=== PATIENT | female | born 1960 | race Caucasian/White ===

== ENCOUNTER 2016-11-07 05:39 | Day surgery (SDC) | payer BC ==
[2016-11-03 15:10] VITALS: BMI 25.0
[~2016-11-07] VITALS: Ht 162.6 cm; Wt 67.7 kg
[~2016-11-07 05:39] MED LIST: BUDE180I INH; LEVO75TA5 PO; VNTHFA/IN INH
[2016-11-07 06:01] VITALS: BP 125/78; PULSE 67; TEMP 36.5; O2SAT 96; Ht 162.6 cm; Wt 67.7 kg
[2016-11-07] MEDS ORDERED: SUCCINYLCHOLINE CHLORIDE 20 MG/ML 10 ML VIAL IV ONE (06:54)
[2016-11-07] MEDS ORDERED: ONDANSETRON INJ 2 MG/ML 2 ML VIAL ONE (06:54)
[2016-11-07] MEDS ORDERED: LIDOCAINE HCL 2% 2 ML VIAL (20MG/ML) ONE (06:54)
[2016-11-07] MEDS ORDERED: PROPOFOL IV EMULSION 10 MG/ML 20 ML VIAL IV ONE ×4 (06:54→08:05)
[2016-11-07] MEDS ORDERED: DEXAMETHASONE SOD INJ 4 MG/ML VIAL ONE (06:54)
[2016-11-07] MEDS ORDERED: MIDAZOLAM HCL 1 MG/ML 2ML VIAL ONE (06:55)
[2016-11-07] MEDS ORDERED: FENTANYL CITRATE INJ 50 MCG/1 ML 2 ML VIAL ONE (06:55)
[2016-11-07] MEDS ORDERED: LACTATED RINGER'S 1000ML 1,000 ML IV SCH (07:00)
--- NOTE | 2016-11-07 07:12 | History and Physical ---
History & Physical Date Nov 07, 2016. History of Present Illness The patient is a 56 year old female with complaints of hoarseness. She was noted to have a true vocal cord lesion on laryngoscopy. with her smoking history, I recommended DL and biopsy. Additional History Hepatic Disease: No Endocrine Disorder: No Kidney Disease: No Hypertension: No Heart Disease: No Bleeding Tendencies: No Infectious Diseases: No Allergies Coded Allergies: No Known Allergies (Unverified , 11/07/16) Home Medications Scheduled Budesonide (Inhalation) (Pulmicort Flexhaler), 2 PUFFS INH QAM Levothyroxine Sodium (Levothyroxine Sodium), 1 TAB PO QAM Scheduled PRN Albuterol Hfa (Ventolin Hfa), 2-4 PUFFS INH Q6H PRN for Shortness of Breath Physical Examination Skin: warm/dry, no rash Eyes: normal inspection, EOMI, sclerae normal ENT: + pertinent finding (hoarseness) Head: normocephalic, atraumatic Neck: supple, no adenopathy, trachea midline Respiratory/Chest: lungs clear, normal breath sounds, no respiratory distress Cardiovascular: regular rate, rhythm, no edema, no murmur Diagnosis Right true cord lesion Plan of Treatment proceed with DL and biopsy - ancef - scds
[2016-11-07] MEDS ORDERED: CEFAZOLIN SOD 1000MG/55 ML D5W IV SCH (07:15)
[2016-11-07] MEDS ORDERED: SODIUM CHLORIDE 0.9% 1000ML 1,000 ML IV SCH (07:22)
[2016-11-07] MEDS ORDERED: OXYC-57 PO (07:25)
[2016-11-07] MEDS ORDERED: CEPH500C2 PO (07:25)
--- NOTE | 2016-11-07 07:27 | Discharge Instructions ---
Discharge Instructions Admission Reason for Admission: Vocal Cord Mass Discharge Discharge Diagnosis / Problem: vocal cord lesion Discharge Goals Goal(s): Diagnostic testing Activity Recommendations Activity Limitations: as noted below (Limited voice use for 48 hrs. ) Lifting Limitations: no more than 5 pounds Exercise/Sports Limitations: until after follow-up appointment May Resume Sexual Activity: after follow-up appointment Shower/Bathe: no limitations . Instructions / Follow-Up Instructions / Follow-Up Limited voice use for 48 hrs. Ok to return to work Current Hospital Diet Patient's current hospital diet: Discharge Diet Recommended Diet: Regular Diet Pending Studies Studies pending at discharge: no Medical Emergencies . Who to Call and When: Medical Emergencies: If at any time you feel your situation is an emergency, please call 911 immediately. . Non-Emergent Contact Non-Emergency issues call your: Specialist Contact Number: [phone] . . "Provider Documentation" section prepared by Pasquale Dowell. VTE Core Measure Inpt VTE Proph given/why not?: Treatment not indicated [place] Drug Monitoring Program Search Results: patient reviewed within database, no issues identified
[2016-11-07] MEDS ORDERED: OXYCODONE/ACETAMINOPHEN 5-325 TAB PO PRN ×2 (07:30)
[2016-11-07] MEDS ORDERED: MoRPHine SULFATE 2 MG/ML CARP IV PRN (07:30)
[2016-11-07] MEDS ORDERED: ONDANSETRON INJ 2 MG/ML 2 ML VIAL IV PRN ×2 (07:30→08:00)
[2016-11-07] MEDS ORDERED: CEFAZOLIN SOD 1 GM VIAL ONE (07:47)
[2016-11-07] MEDS ORDERED: ROCURONIUM BROMIDE 10 MG/ML 5 ML VIAL ONE (07:47)
[2016-11-07] MEDS ORDERED: LABETALOL HCL IV 5 MG/ML 20ML ONE (07:52)
[2016-11-07] MEDS ORDERED: ATROPINE SULFATE 0.1 MG/ML 5ML SYR IV PRN (08:00)
[2016-11-07] MEDS ORDERED: HYDROmorphone INJ 1 MG/ML SYR IV PRN (08:00)
[2016-11-07] MEDS ORDERED: EpHEDrine SULFATE INJ 50 MG/ML AMP IV PRN (08:00)
[2016-11-07] MEDS ORDERED: FENTANYL CITRATE INJ 50 MCG/1 ML 2 ML VIAL IV PRN (08:00)
--- NOTE | 2016-11-07 08:18 | [facility] Post Operative Brief Note ---
Immediate Operative Summary Operative Date Nov 07, 2016. 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
--- NOTE | 2016-11-07 08:25 | OPERATIVE REPORT ---
DATE OF OPERATION: 11/07/2016 PREOPERATIVE DIAGNOSIS: Right true vocal cord mass. POSTOPERATIVE DIAGNOSIS: Same. Frozen section suspicious for invasive squamous cell carcinoma. PROCEDURE: Direct laryngoscopy with biopsy. SURGEON: Pasquale Dowell DO ASSISTANTS: None. ANESTHESIA: General endotracheal anesthesia. ESTIMATED BLOOD LOSS: 5 mL. INTRAVENOUS FLUIDS: 800 mL. URINE OUTPUT: 0 mL. SPECIMENS: Right vocal cord lesions suspected squamous cell carcinoma. This was sent for frozen section analysis. 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 COMPLICATIONS: None. DRAINS: None. INDICATIONS AND HISTORY: This is a 56-year-old female who presented to my office with a several-month history of hoarseness and change in voice. She is a heavy smoker and has been for many years. 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 The cord was mobile. Both cords were mobile on laryngoscopy. With her smoking history, I did recommend proceeding with direct laryngoscopy with biopsy. She expressed her understanding. I discussed the risks including bleeding, infection, oral cavity injury, worsening of voice. She expressed understanding and signed informed consent. DESCRIPTION OF THE OPERATION: The patient brought to the operating room, identified, and procedure verified. She underwent general endotracheal anesthesia and she was prepped and draped in the usual fashion for direct laryngoscopy. At this point, a mouth guard was placed to protect her upper teeth. Once this was done, the anterior commissure scope was used to evaluate the pharynx and larynx. Evaluation of the pharynx revealed posterior and lateral pharyngeal block are normal appearing. Vallecula was normal appearing. The epiglottis was crisp. The false cords were normal appearing. The arytenoid was normal appearing. Post-cricoid space was normal appearing. At this point, the glottis was evaluated. The left true vocal cord was healthy appearing without evidence of mass or lesion. The right true cord with a mass that was at the mid portion of the cord and extended posteriorly towards the arytenoid. Palpation revealed that it was firm and friable. Biopsy of this was performed and several biopsies were obtained. After this was done, hemostasis was assured with epinephrine soaked pledgets. 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 Once hemostasis was assured, both pharynx and larynx were suctioned with a velvet tip suction and the patient was turned to anesthesia. She was awakened, extubated and taken to PACU in stable condition. I attest to the content of the Intraoperative Record and any orders documented therein. Any exceptions are noted below. RHONDA
--- NOTE | 2016-11-07 09:01 | Anesthesiology Progress Note ---
Anesthesia Post Op Note Date & Time Nov 07, 2016 at 09:01 Vital Signs Pain Intensity: 1 Vital Signs Past 12 Hours Date Time Temp Pulse Resp B/P Pulse Ox O2 Delivery O2 Flow Rate FiO2 11/07/16 08:55 70 19 123/77 94 Room Air 11/07/16 08:45 75 19 110/78 93 Room Air 11/07/16 08:35 77 20 101/75 98 Mask 10 11/07/16 08:27 36.0 87 16 104/70 99 Mask 10 11/07/16 06:01 36.5 67 20 125/78 96 Room Air Notes Mental Status: alert / awake / arousable, participated in evaluation Pt Amnestic to Procedure: Yes Nausea / Vomiting: adequately controlled Pain: adequately controlled Airway Patency, RR, SpO2: stable & adequate BP & HR: stable & adequate Hydration State: stable & adequate Anesthetic Complications: no major complications apparent
[2016-11-07 09:10] VITALS: BP 123/72; PULSE 63; TEMP 36.2; O2SAT 92
[2016-11-07 09:40] VITALS: BP 119/70; PULSE 60; TEMP 36.2; O2SAT 94
[2016-11-07 10:07] VITALS: BP 119/79; PULSE 61; TEMP 36.4; O2SAT 94
[2016-11-24] MEDS ORDERED: VNTHFA/IN INH (09:32)
[2016-11-24] MEDS ORDERED: BUDE180I INH (09:32)
[2016-11-24] MEDS ORDERED: LEVO75TA5 PO (09:32)
[2016-11-24] MEDS ORDERED: CLR10 PO (09:32)
[2016-11-24] MEDS ORDERED: FLUT0.15 NAE (09:32)
== END 2016-11-07 10:15 | disposition home or self-care (01) ==
LOC: C.ACU 05:39
PROVIDERS: ATTEND Otolaryngology
DX: J38.3 Other diseases of vocal cords (principal); J44.9 Chronic obstructive pulmonary disease, unspecified; F17.200 Nicotine dependence, unspecified, uncomplicated; Z68.25 Body mass index [BMI] 25.0-25.9, adult

== ENCOUNTER 2025-04-25 11:52 | Inpatient (IN) ==
--- NOTE | 2025-04-25 12:33 | Emergency Department Note ---
Impression & Plan Urinary tract infection, Elevated LFTs, Acute hypotension, Generalized weakness ED Provider Note NAME: CRUZ LEES AGE: 65 SEX: F : 1960 ARRIVES VIA: Walk-In INFORMANT: Patient, ED PROVIDER(S): Clayton Baptiste DO CHIEF COMPLAINT: Not feeling well HPI: The patient is a 65-year-old female who has a history of lung cancer who presented to the emergency department for not feeling well. The patient has noticed when she stands up she is becoming lightheaded and dizzy. She also notices she has cramping through her legs that go into her back. She denies having any chest pain or abdominal pain. She said no dysuria or frequency. The patient presented to the emergency department for further evaluation. The patient did see her family doctor earlier this week. No testing was obtained. The patient came the emergency department today because of ongoing symptoms. ROS: See above HPI for pertinent positives & negatives. A total of 10 systems reviewed and were otherwise negative. PAST MEDICAL HISTORY: See Below PAST SURGICAL HISTORY: See Below FAMILY HISTORY: See Below SOCIAL HISTORY: See Below HOME MEDICATIONS: See Below ALLERGIES: See Below VITALS: See Below PHYSICAL EXAMINATION: GENERAL: Patient is awake alert in no acute distress patient is resting comfortably and showing no signs of anxiety EYES: The conjunctivae are clear. The pupils are round and reactive. EARS, NOSE, MOUTH AND THROAT: The nose is without any evidence of any deformity. NECK: The neck is nontender and supple. RESPIRATORY: Scattered rhonchi were noted throughout. There was no tachypnea or conversational dyspnea. CARDIOVASCULAR: Regular rate and rhythm noted there no murmurs rubs or gallops normal S1 normal S2. GASTROINTESTINAL: The abdomen is soft. Abdomen is nontender. BACK: No midline tenderness or or step-off noted range of motion in flexion extension as well as rotation no signs of muscle spasm noted MUSCULOSKELETAL/EXTREMITIES: There is no evidence of gross deformity full range of motion is noted in the hips and shoulders. SKIN: There is no obvious evidence of any rash. There are no petechiae, pallor or cyanosis noted. NEUROLOGIC: Patient is awake alert and oriented x3 strength is symmetric patellar reflexes are 2+ bilaterally MEDICAL DECISION MAKING: The patient is a 65-year-old female who presented to the emergency department because of generalized illness. The patient has not been feeling well over the last couple days. She is normally managed at [place]. She has a history of cancer. She is receiving chemotherapy. The patient was having some back pain as well as muscle aches in her legs. The patient was treated with IV fluids in the emergency department. She was found to be hypotensive. She was reevaluated multiple times. On reevaluation her blood pressure did not significantly improved. The patient did not have a fever. Laboratory studies did not reflect a definite infectious source. Given the patient's findings of elevated LFTs I did order an ultrasound of her gallbladder which did not show any acute process that would explain this. She did have normal liver studies at the beginning of the month according to her labs from her portal. Given her findings I [facility] I do feel the patient would not be a good candidate for outpatient management at this time. Triage Nursing notes reviewed. Prior medical records reviewed Vital Signs: reviewed and remarkable for hypotension. Differential diagnosis: Infection, dehydration, metabolic abnormality, hypo/hyperglycemia, electrolyte disturbance, anemia, hypoxia, cardiac sources, intracerebral event, toxicologic, neurologic, as well as other pathologies. ER treatment provided: See below Diagnostics interpreted by me: ECG: EKG was obtained in the emergency department. My interpretation is normal sinus rhythm at 94 bpm. There is no ectopy. Low voltage was noted throughout. QTc was 422 ms. Cardiac Monitoring: An order was placed for continuous cardiac monitoring. The monitor shows a rate of 100 bpm with sinus tachycardia. Laboratory studies: As stated above and show below. Imaging studies: See below. Radiographic imaging was reviewed by myself Consultation(s): I discussed this case with Emilia [facility]. Past Med/Surg History Problem List (Updated 04/25/25 @ 15:01 by Clayton Baptiste DO) Urinary tract infection (Acute) Generalized weakness (Acute) Acute hypotension (Acute) Elevated LFTs (Acute) Medical History Hypothyroid Lung cancer COPD (chronic obstructive pulmonary disease) Social History Smoking Status: Never smoker Preferred Language: Frisian Feels Safe at Home: Yes Allergies Allergies Allergy/AdvReac Type Severity Reaction Status Date / Time No Known Allergies Allergy Unverified 11/07/16 05:50 Home Meds Home Medications Medication Instructions Recorded Confirmed ALBUTEROL HFA (VENTOLIN HFA) 2 puff inhalation Q4 #1 inhaler 11/24/16 BUDESONIDE (INHALATION) (PULMICORT 4 puff inhalation BID 30 days #1 11/24/16 FLEXHALER) inhaler Fluticasone Propionate (Nasal) 2 spray RIOS DAILY ##0 11/24/16 (Flonase Allergy Relief) LEVOTHYROXINE SODIUM 1 tab PO DAILY 30 days #30 tabs 11/24/16 Loratadine (Claritin) 10 mg PO DAILY #0 tabs 11/24/16 Results & Data (ED) Vital Signs Vital Signs - 24 hr 04/25/25 11:55 04/25/25 12:19 04/25/25 12:45 Temperature 36.6 C Temperature Source Temporal Artery Scan Pulse Rate 112 H 100 H Respiratory Rate 20 Respiratory Effort / Characteristics Non-Labored Spontaneous Respiratory Depth Normal Respiratory Pattern Regular Blood Pressure 90/63 L Blood Pressure Mean 72 Blood Pressure Position Sitting Pulse Oximetry 96 96 Oxygen Delivery Method Room Air Room Air Sepsis Recent Fever Within 48 Hours No Sepsis New/Unexplained Change in Mental Status N/A Sepsis Action Taken by Nursing No Action Required Home Medications Current Medication List: was personally reviewed by me Laboratory Data Attestation: I reviewed the patient's lab results. 04/25/25 12:14 04/25/25 12:14 Lab Results 04/25/25 04/25/25 04/25/25 Range/Units 12:14 12:39 14:00 WBC 6.50 (4.8-10.8) K/ul RBC 4.79 (4.20-5.40) M/uL Hgb 14.1 (12.0-16.0) g/dl Hct 40.9 (37.0-47.0) % MCV 85.4 (80.0-100.0) fL MCH 29.4 (25.0-34.0) pg MCHC 34.5 (32.0-36.0) g/dL RDW Std Deviation 51.4 H (36.4-46.3) fL RDW Coeff of Annamaria 16.4 H (11.5-14.5) % Plt Count 261 (130-400) K/uL MPV 9.9 (9.4-12.4) fL Immature Gran % (Auto) 4.5 % Neut % (Auto) 70.5 % Lymph % (Auto) 9.8 % [place] % (Auto) 12.3 % Eos % (Auto) 2.3 % Baso % (Auto) 0.6 % Neut # (Auto) 4.58 (1.40-6.50) K/uL Lymph # (Auto) 0.64 L (1.20-3.40) K/uL [place] # (Auto) 0.80 H (0.11-0.59) K/uL Eos # (Auto) 0.15 (0.00-0.50) K/uL Baso # (Auto) 0.04 (0.00-0.20) K/uL Immature Gran # (Auto) 0.29 H (0.01-0.20) K/uL PT 10.2 (9.0-12.0) Seconds INR 0.9 (0.9-1.1) APTT 30 (21-31) Seconds PTT Ratio 1.1 VBG pH 7.32 L (7.36-7.41) VBG pCO2 42 (38-50) mmHg VBG pO2 25 mmHg VBG HCO3 22 mmol/L VBG O2 Saturation < 60.0 % VBG Base Excess -4.3 mEq/L Sodium 136 (136-145) mmol/L Potassium 3.6 (3.5-5.1) mmol/L Chloride 105 (98-107) mmol/L Carbon Dioxide 22 (21-32) mmol/L Anion Gap 9 (3-11) BUN 21 (6-23) mg/dl Creatinine 1.36 H (0.6-1.2) mg/dl Est Cr Clr Drug Dosing 42.4 ml/min eGFR 43.50 BUN/Creatinine Ratio 15.4 (10-20) Glucose 125 H (70-99(Fasting)) mg/dl Lactate 1.8 (0.4-2.0) mmol/L Calcium 9.5 (8.6-10.3) mg/dl Magnesium 1.8 (1.7-2.4) mg/dl Total Bilirubin 1.2 H (0.2-1.0) mg/dl Direct Bilirubin 0.4 H (0-0.2) mg/dl AST 67 H (13-39) U/L ALT 70 H (7-52) U/L Alkaline Phosphatase 187 H (34-104) U/L Total Creatine Kinase 10 L (26-192) U/L Troponin I High Sens 7.5 (0-14) pg/ml Total Protein 6.2 (6.0-8.3) gm/dl Albumin 3.3 L (3.4-5.0) gm/dl Procalcitonin 0.33 (0-0.5) ng/ml Urine Color Dark Yellow Urine Appearance Cloudy A (Clear) Urine pH 5.5 (4.5-7.5) Ur Specific [place] 1.025 (1.000-1.030) Urine Protein 1+ H (Negative) Urine Glucose (UA) Negative (Negative) Urine Ketones Trace H (Negative) Urine Blood Negative (Negative) Urine Nitrite Negative (Negative) Urine Bilirubin 1+ H (Negative) Urine Urobilinogen Negative (Negative) Ur Leukocyte Esterase 3+ H (Negative) Urine WBC (Auto) >50 H (0-5) /hpf Urine RBC (Auto) 3-5 H (0-2) /hpf U Hyaline Cast (Auto) 11-20 H (0-2) /lpf U Epithel Cells (Auto) 6-10 H (0-2) /hpf Urine Bacteria (Auto) 1+ H (None Seen) Calcium Oxalate Crystal Present A (None Prsent) Urine Comment Anaplasma Smear See Comment Babesia Smear See Comment Lyme Disease Screen Negative (Negative) Administered Medications Discontinued Medications Sodium Chloride (Nss) 1,000 mls @ 999 mls/hr IV .Q1H1M ONE Stop: 04/25/25 13:26 Last Admin: 04/25/25 12:38 Dose: 999 mls/hr Documented By: BLD Imaging Data Attestation: I personally reviewed and interpreted this imaging study as follows: My Impression: 1 view chest x-ray was obtained in the emergency department. My interpretation is no free air or definite infiltrate, final report below. Radiologist's Impression: Chest X-Ray 04/25/25 12:26 XR chest 2V PA/lateral CLINICAL HISTORY: pin COMPARISON STUDY: None FINDINGS: There is mild cardiomegaly without pulmonary vascular congestion. Lungs are mildly hyperexpanded. No consolidation or pleural effusion. No pneumothorax. There is mild scoliosis. IMPRESSION: No acute findings. ACT 112: Negative or not required by law. Electronically signed by: Chandler Panchal M.D. 04/25/2025 1:01 PM Lumbar Spine X-Ray 04/25/25 12:26 LUMBAR SPINE 5 VIEWS CLINICAL HISTORY: Low back pain. Leg pain. FINDINGS: 5 views of the lumbar spine are obtained. No prior studies are available for comparison at the time of dictation. The skeletal structures are osteopenic. There is no radiographic evidence of fracture or malalignment. Vertebral body height is preserved. There are bilateral pars defects at L5 with 13 mm anterolisthesis at L5-S1. Alignment is otherwise Maintained. The transverse and spinous processes are intact. There anterior and lateral marginal osteophytes are seen throughout. There is severe disc space narrowing at L5-S1. Only mild disc space narrowing is seen at the remaining lumbar levels. Facet arthropathy is noted in the lower lumbar region. The visualized bony pelvis appears intact. There is a nonobstructed abdominal bowel gas pattern. Advanced atherosclerotic calcification is seen in the abdominal aorta. Phleboliths are noted in the pelvis. IMPRESSION: 1. No acute bony abnormality is seen involving the lumbar spine. 2. There are bilateral pars defects at L5 with grade 1 anterolisthesis at L5-S1. 3. Osteopenia and mild spondylotic change as above. ACT 112: Negative or not required by law. Electronically signed by: Jan Dubose M.D. 04/25/2025 1:15 PM Gallbladder Ultrasound 04/25/25 13:00 ULTRASOUND RIGHT UPPER QUADRANT ABDOMEN CLINICAL HISTORY: Back pain. COMPARISON STUDY: No priors TECHNIQUE: Real-time, grayscale, and color flow sonography of the right upper quadrant of the abdomen was performed. Images are reviewed in the transverse and longitudinal planes. FINDINGS: Liver: The liver is normal in size. Echotexture there is heterogeneously increased suggesting steatosis. There is no intrahepatic biliary ductal dilatation. The main portal vein is patent. Gallbladder: There are foci of adenomyomatosis. No shadowing gallstones are identified. There is no gallbladder wall thickening or pericholecystic fluid. A sonographic Wang's sign is reportedly absent. The common bile duct measures up to 0.7 cm in diameter. Pancreas: Visualized portions of the pancreatic head and body are normal in appearance. The splenic vein is patent. Right kidney: Survey images of the right kidney demonstrate normal size and echotexture. There is no hydronephrosis. Ascites: None. IMPRESSION: 1. No acute sonographic abnormality is identified in the right upper quadrant. No gallstones are seen. 2. Foci of adenomyomatosis are seen in the gallbladder wall. 3. Hepatic echotexture is increased suggesting steatosis. ACT 112: Negative or not required by law. Electronically signed by: Jan Dubose M.D. 04/25/2025 2:06 PM Discharge Plan Visit Data Chief Complaint: Leg Injury/Pain Stated Complaint: LEG CRAMPS IN BOTH ED Provider: Clayton Baptiste Discharge Problem: Urinary tract infection, Elevated LFTs, Acute hypotension, Generalized weakness Patient Disposition: Being Evaluated by Hospitalist Condition: Fair Forms Stand Alone Forms: My [facility] Prescriptions Prescriptions: No Action ALBUTEROL HFA (VENTOLIN HFA) 200 PUFFS/18,000 MCG AEROSOL,SOLN 2 puff Inhalation Q4 Qty: 1 BUDESONIDE (INHALATION) (PULMICORT FLEXHALER) 180 MCG/ACT inhaler 4 puff Inhalation BID 30 Days Qty: 1 Fluticasone Propionate (Nasal) (Flonase Allergy Relief) 50 MCG/ACT SPR 2 spray RIOS DAILY Qty: 0 LEVOTHYROXINE SODIUM 75 MCG tablet 1 tab PO DAILY 30 Days Qty: 30 Loratadine (Claritin) 10 MG tablet 10 mg PO DAILY Qty: 0 Referrals Referrals: Tim Galan PA-C [Primary Care Provider] -
[2025-04-25] MEDS: SODIUM CHLORIDE 0.9% 1,000 ML IV ONE ×2 (12:38→15:22)
[2025-04-25 12:46] LABS: Hematocrit (blood only) 40.9 % (37.0-47.0); Hemoglobin 14.1 g/dl (12.0-16.0); Immature Granulocytes # (auto) 0.29 K/uL (0.01-0.20); Immature Granulocytes % (auto) 4.5 %; Mean Corpuscular Hemoglobin 29.4 pg (25.0-34.0); Mean Corpuscular Volume 85.4 fL (80.0-100.0); Platelet Count 261 K/uL (130-400); RDW Standard Deviation 51.4 fL (36.4-46.3); Red Blood Count 4.79 M/uL (4.20-5.40); White Blood Count 6.50 K/ul (4.8-10.8)
[2025-04-25 12:58] LABS: Alanine Aminotransferase 70.0 U/L (7-52); Alkaline Phosphatase 187.0 U/L (34-104); Anion Gap 9.0 (3-11); Bilirubin,Total 1.2 mg/dl (0.2-1.0); Blood Urea Nitrogen 21.0 mg/dl (6-23); Calcium 9.5 mg/dl (8.6-10.3); Carbon Dioxide 22.0 mmol/L (21-32); Chloride 105.0 mmol/L (98-107); Creatinine Clr Calc Pharmacy 42.4 ml/min; Glucose 125.0 mg/dl (70-99(Fasting)); Magnesium 1.8 mg/dl (1.7-2.4); Potassium 3.6 mmol/L (3.5-5.1); Sodium 136.0 mmol/L (136-145); Total Protein 6.2 gm/dl (6.0-8.3)
[2025-04-25 12:59] LABS: Base Excess VBG -4.3 mEq/L; HCO3 VBG 22 mmol/L; Oxygen Saturation VBG < 60.0 %; PCO2 VBG 42 mmHg (38-50); PO2 VBG 25 mmHg; pH VBG 7.32 (7.36-7.41)
--- NOTE | 2025-04-25 13:02 | XRay Report ---
XR chest 2V PA/lateral CLINICAL HISTORY: pin COMPARISON STUDY: None FINDINGS: There is mild cardiomegaly without pulmonary vascular congestion. Lungs are mildly hyperexp anded. No consolidation or pleural effusion. No pneumothorax. There is mild scoliosis. IMPRESSION: No acute findings. ACT 112: Negative or not required by law. Electronically signed by: Chandler Panchal M.D. 04/25/2025 1:01 PM
[2025-04-25 13:11] LABS: INR 0.9 (0.9-1.1); Partial Thromboplastin Time 30 Seconds (21-31); Prothrombin Time 10.2 Seconds (9.0-12.0)
--- NOTE | 2025-04-25 13:16 | XRay Report ---
LUMBAR SPINE 5 VIEWS CLINICAL HISTORY: Low back pain. Leg pain. FINDINGS: 5 views of the lumbar spine are obtained. No prior studies are available for comparison at the time of dictation. The skeletal structures are osteopenic. There is no radiographic evidence of fracture or malalignment. Vertebral body height is preserved. There are bilateral pars defects at L5 with 13 mm anterolisthesis at L5-S1. Alignment is otherwise Maintained. The transverse and spinous pr ocesses are intact. There anterior and lateral marginal osteophytes are seen throughout. There is sev ere disc space narrowing at L5-S1. Only mild disc space narrowing is seen at the remaining lumbar lev els. Facet arthropathy is noted in the lower lumbar region. The visualized bony pelvis appears intact . There is a nonobstructed abdominal bowel gas pattern. Advanced atherosclerotic calcification is see n in the abdominal aorta. Phleboliths are noted in the pelvis. IMPRESSION: 1. No acute bony abnormality is seen involving the lumbar spine. 2. There are bilateral pars defects at L5 with grade 1 anterolisthesis at L5-S1. 3. Osteopenia and mild spondylotic change as above. ACT 112: Negative or not required by law. Electronically signed by: Jan Dubose M.D. 04/25/2025 1:15 PM
--- NOTE | 2025-04-25 14:07 | Ultrasound Report ---
ULTRASOUND RIGHT UPPER QUADRANT ABDOMEN CLINICAL HISTORY: Back pain. COMPARISON STUDY: No priors TECHNIQUE: Real-time, grayscale, and color flow sonography of the right upper quadrant of the abdomen was performed. Images are reviewed in the transverse and longitudinal planes. FINDINGS: Liver: The liver is normal in size. Echotexture there is heterogeneously increased suggesting steatos is. There is no intrahepatic biliary ductal dilatation. The main portal vein is patent. Gallbladder: There are foci of adenomyomatosis. No shadowing gallstones are identified. There is no g allbladder wall thickening or pericholecystic fluid. A sonographic Wang's sign is reportedly absent . The common bile duct measures up to 0.7 cm in diameter. Pancreas: Visualized portions of the pancreatic head and body are normal in appearance. The splenic v ein is patent. Right kidney: Survey images of the right kidney demonstrate normal size and echotexture. There is no hydronephrosis. Ascites: None. IMPRESSION: 1. No acute sonographic abnormality is identified in the right upper quadrant. No gallstones are seen . 2. Foci of adenomyomatosis are seen in the gallbladder wall. 3. Hepatic echotexture is increased suggesting steatosis. ACT 112: Negative or not required by law. Electronically signed by: Jan Dubose M.D. 04/25/2025 2:06 PM
[2025-04-25 14:31] LABS: Appearance Urine Cloudy (Clear); Bacteria Urine Automated 1+ (None Seen); Glucose Urine UA Negative (Negative); WBC Urine Automated >50 /hpf (0-5)
--- NOTE | 2025-04-25 14:34 | History & Physical Report ---
Date of Service April 25, 2025 Assessment & Plan (1) Bilateral lower extremity pain: (2) Generalized weakness: (3) Decrease in appetite: (4) Lightheadedness: (5) Acute kidney injury superimposed on stage 3a chronic kidney disease: (6) Transaminitis: (7) Urinary tract infection: Plan Patient is a 65-year-old female with past medical history significant for hypothyroidism, HLD, tobacco use disorder, COPD/centrilobular emphysema, history of vocal cord cancer s/p radiation therapy in 2016, non-small cell lung cancer diagnosed in 2020 s/p chemotherapy and radiation therapy [currently undergoing treatment with Keytruda [id number] + Krazati (oral chemo) therapy], CKD stage IIIa, severe DDD at L5-S1, history of traumatic subarachnoid hemorrhage in 2014 which resolved without surgery and other problems as below who presented to the ED with multiple complaints including BLE pain x several weeks, generalized weakness, poor oral intake with mild lightheadedness/dizziness and dysuria. #BLE pain x several weeks --> no inciting injury/trauma Only present w/ standing still & lying down; no present w/ walking -W/ radiation into the lower back region; no BLE paraesthesias Lumbar spine XR: no acute bony abnormality, bilateral pars defects at L5 w/ g rade 1 anterolisthesis at L5-S1, severe disc space narrowing at L5-S1, osteopenia/mild spondylotic change Pt reports h/o severe DDD at L5-S1 -No prior h/o pain to this extent reported Trial of Percocet at home w/o significant relief Pt reports swelling of her R calf region, not painful/TTP/erythematous --> check RLE venous doppler US Check lumbar spine CT w/o con given BASIL Lyme screen negative Additional tickborne illness testing pending CK WNL Check ESR/CRP --> ? underlying inflammatory arthropathy ? side effect from oral chemo pill, adagrasib --> MSK pain common side effect of med -Will monitor pt off of this med for now to see if any improvement #Generalized weakness #Poor po intake, decrease in appetite #Lightheadedness/dizziness ? poor appetite related to oral chemo pill and/or Keytruda infusions (last one ~2wks ago) -Again will hold oral chemo pill for now No abd pain, N/V Lightheadedness/dizziness poss related to poor po intake -Check orthostatics Check TSH Additional tickborne illness testing pending as per above ? may need to consider trial of Remeron HS for appetite stimulation Procalcitonin negative -However will check blood cx given generalized weakness/vague complaints #BASIL superimposed on CKDIIIa Cr 1.36 Baseline Cr 1-1.2 per chart review Likely related to poor po intake IVF onboard --> follow repeat labs in AM Avoid nephrotoxic agents as able #Transaminitis T. bili 1.2, AST 67, ALT 70, alk phos 187 Gallbladder US: no gallstones/acute sonographic abnormalities in RUQ, foci of adenomyomatosis seen in gallbladder wall, hepatic echotexture increased suggesting steatosis -? transaminitis solely related to underlying fatty liver dz -Follow repeat CMP in AM Transaminitis can also be side effect of her oral chemo pill --> currently on hold Avoid hepatotoxic agents as able #UTI Pt c/o dysuria --> UA: 3+ LE, >50 WBC, 1+ bacteria Empirically cover w/ IV Rocephin for now pending urine cx results #Hypothyroidism Continue levothyroxine Check TSH in AM as per above #COPD No s/sx of acute exacerbation Continue home inhaler, Singulair #GERD Continue Pepcid #History of vocal cord CA s/p radiation therapy --> chronic hoarse voice s/p radiation DVT Prophylaxis: SQ heparin Disposition: Admit to med/tele Patient seen in collaboration with Dr. Cárdenas. Please see addendum. I spent a total of 66 minutes coordinating, documenting, and providing care for this patient excluding time spent in the performance of separately billed services or time spent by another provider/QHP. This included personally reviewing all current laboratories and imaging studies, medical reconciliation, outpatient chart review and discussion with specialists. This chart was completed in part utilizing Speech Voice Recognition Software. Grammatical errors, random word insertions, pronoun errors, and incomplete sentences are an occasional consequence of this system due to software limitations, ambient noise, and hardware issues. Any formal questions or concerns about the content, text, or information contained within the body of this dictation should be directly addressed to the provider for clarification. History of Present Illness Chief Complaint: BLE pain, generalized weakness, lightheadedness/dizziness Primary Care Provider: Tim Galan PA-C Patient is a 65-year-old female with past medical history significant for hypothyroidism, HLD, tobacco use disorder, COPD/centrilobular emphysema, history of vocal cord cancer s/p radiation therapy in 2016, non-small cell lung cancer diagnosed in 2020 s/p chemotherapy and radiation therapy [currently undergoing treatment with Keytruda [id number] + Krazati (oral chemo) therapy], CKD stage IIIa, severe DDD at L5-S1, history of traumatic subarachnoid hemorrhage in 2014 which resolved without surgery and other problems as below who presented to the ED with multiple complaints including lightheadedness/dizziness, BLE pain and generalized weakness. History obtained from the patient, discussion with ED provider and associated chart review. Patient reports BLE pain upon standing, but not with ambulation, for the past few weeks. It occurs only when she is standing still or laying down in bed. She describes the pain as dull/achy in sensation with periods of sharp twinges. The pain occasionally will radiate into her lower back and one time it radiated all the way up into her shoulders. States she had some mild numbness in her arms a few days ago but this had subsided. Denies any BLE paresthesias. No reported bowel or urinary incontinence. No trauma or inciting event prior to beginning. Feels her RLE is somewhat more swollen when compared to the LLE. No TTP of her BLE or erythematous patches noted. No reported fevers. However, patient has been experiencing dysuria for the past several days. No reported hematuria, diarrhea or melena/hematochezia. Patient states that while she wants to do sleep and that she feels overall "rundown"/weak. With her fatigue she also notes poor oral intake due to lack of appetite. She endorses some mild lightheadedness and dizziness which she attributes due to her poor fluid intake. No reported falls. Patient is currently being treated with Keytruda every 3 weeks and is on an oral chemotherapy medication called Krazati due to history of non-small cell lung cancer. She follows with an oncologist in [place], [place] named Dr. Tano Alves. She has not taken her oral chemotherapy medication for the past couple of days due to feeling so unwell. Her last Keytruda session was about 2 weeks ago. Has a chronic cough and SOB with exertion. Patient with history of vocal cord cancer s/p radiation therapy in 2017. Chronic hoarse voice. Patient denies any chest pain, SOB with rest or abdominal pain. Patient has not had a bowel movement in about 4 days. She notes this is somewhat usual for her as she occasionally takes Percocet for cancer-related pain and underlying severe L5-S1 DDD. She had been using the Percocet to try and alleviate the pain in her BLE and low back without full relief. Allergies Allergy/AdvReac Type Severity Reaction Status Date / Time No Known Allergies Allergy Unverified 11/07/16 05:50 Home Medications Medication Instructions Recorded Confirmed Type levothyroxine 75 mcg tablet 1 tab PO DAILYBB 30 days #30 tabs 11/24/16 04/25/25 History loratadine 10 mg tablet 10 mg PO HS #0 tabs 11/24/16 04/25/25 History adagrasib 200 mg tablet 600 mg PO BID 04/25/25 04/25/25 History albuterol 90 mcg/actuation aerosol 90 mcg inhalation Q4H PRN 04/25/25 04/25/25 History inhaler SOB/Wheezing famotidine 40 mg tablet 40 mg PO QAM 04/25/25 04/25/25 History fluticasone fur. 100 mcg-umeclid 1 inh inhalation QAM 04/25/25 04/25/25 History 62.5 mcg-vilant 25 mcg inhalat.powder (Trelegy Ellipta) montelukast 10 mg tablet 10 mg PO QAM 04/25/25 04/25/25 History oxycodone-acetaminophen 5 mg-325 1 tab PO Q4H PRN Pain 04/25/25 04/25/25 History mg tablet pembrolizumab 25 mg/mL intravenous See Rx Instructions .Route .COMPLEX 04/25/25 04/25/25 History solution (Keytruda) Past Med/Surg History Problem List (Updated 04/25/25 @ 19:57 by Emilia Lindsay PA-C) Transaminitis Acute kidney injury superimposed on stage 3a chronic kidney disease BASIL (acute kidney injury) Lightheadedness Decrease in appetite Bilateral lower extremity pain Urinary tract infection (Acute) Generalized weakness (Acute) Acute hypotension (Acute) Elevated LFTs (Acute) Medical History Hypothyroid Lung cancer COPD (chronic obstructive pulmonary disease) Social History Smoking Status: Former smoker Smoking End Date: 10/2021; Second Hand Exposure: No; Do You Dip or Chew Tobacco: No; Tobacco Cessation Education Requested by Patient: No Hx Alcohol Use: No Hx Substance Use: No Preferred Language: Greek Communication Ability: Effective Communication Ability Comment: voice is raspy Territory Sales Representative Required: No Beliefs That Will Affect Care: None Current Living Situation: Spouse Other Information That Helps Us Care for You: No Feels Safe at Home: Yes Safety Concerns: Feels Safe At This Time Assistive Devices: Glasses Review of Systems Review of Systems: At least ten systems reviewed and negative, except as noted in the HPI. Physical Exam Physical Exam: Please refer to Dr. Cárdenas's addendum for physical examination findings. Results & Data Results & Data Vital Signs (Past 12 Hours) Vital Signs Temp Pulse Resp BP Pulse Ox O2 Del Method 04/25/25 12:45 96 Room Air 04/25/25 12:19 100 H 04/25/25 11:55 36.6 C 112 H 20 90/63 L 96 Room Air Laboratory Results Short CBC 04/25/25 Range/Units 12:14 WBC 6.50 (4.8-10.8) K/ul Hgb 14.1 (12.0-16.0) g/dl Hct 40.9 (37.0-47.0) % Plt Count 261 (130-400) K/uL BMP 04/25/25 12:14 Sodium 136 Potassium 3.6 Chloride 105 Carbon Dioxide 22 BUN 21 Creatinine 1.36 H Glucose 125 H Calcium 9.5 Cardiac Enzymes 04/25/25 Range/Units 12:14 Total Creatine Kinase 10 L (26-192) U/L Liver Function 04/25/25 Range/Units 12:14 Total Bilirubin 1.2 H (0.2-1.0) mg/dl Direct Bilirubin 0.4 H (0-0.2) mg/dl AST 67 H (13-39) U/L ALT 70 H (7-52) U/L Alkaline Phosphatase 187 H (34-104) U/L Albumin 3.3 L (3.4-5.0) gm/dl Urine 04/25/25 Range/Units 14:00 Urine Color Dark Yellow Urine Appearance Cloudy A (Clear) Urine pH 5.5 (4.5-7.5) Ur Specific [place] 1.025 (1.000-1.030) Urine Protein 1+ H (Negative) Urine Glucose (UA) Negative (Negative) Diagnostic Findings Chest X-Ray 04/25/25 12:26 XR chest 2V PA/lateral CLINICAL HISTORY: pin COMPARISON STUDY: None FINDINGS: There is mild cardiomegaly without pulmonary vascular congestion. Lungs are mildly hyperexpanded. No consolidation or pleural effusion. No pneumothorax. There is mild scoliosis. IMPRESSION: No acute findings. ACT 112: Negative or not required by law. Electronically signed by: Chandler Panchal M.D. 04/25/2025 1:01 PM Lumbar Spine X-Ray 04/25/25 12:26 LUMBAR SPINE 5 VIEWS CLINICAL HISTORY: Low back pain. Leg pain. FINDINGS: 5 views of the lumbar spine are obtained. No prior studies are available for comparison at the time of dictation. The skeletal structures are osteopenic. There is no radiographic evidence of fracture or malalignment. Vertebral body height is preserved. There are bilateral pars defects at L5 with 13 mm anterolisthesis at L5-S1. Alignment is otherwise Maintained. The transverse and spinous processes are intact. There anterior and lateral marginal osteophytes are seen throughout. There is severe disc space narrowing at L5-S1. Only mild disc space narrowing is seen at the remaining lumbar levels. Facet arthropathy is noted in the lower lumbar region. The visualized bony pelvis appears intact. There is a nonobstructed abdominal bowel gas pattern. Advanced atherosclerotic calcification is seen in the abdominal aorta. Phleboliths are noted in the pelvis. IMPRESSION: 1. No acute bony abnormality is seen involving the lumbar spine. 2. There are bilateral pars defects at L5 with grade 1 anterolisthesis at L5-S1. 3. Osteopenia and mild spondylotic change as above. ACT 112: Negative or not required by law. Electronically signed by: Jan Dubose M.D. 04/25/2025 1:15 PM Gallbladder Ultrasound 04/25/25 13:00 ULTRASOUND RIGHT UPPER QUADRANT ABDOMEN CLINICAL HISTORY: Back pain. COMPARISON STUDY: No priors TECHNIQUE: Real-time, grayscale, and color flow sonography of the right upper quadrant of the abdomen was performed. Images are reviewed in the transverse and longitudinal planes. FINDINGS: Liver: The liver is normal in size. Echotexture there is heterogeneously increased suggesting steatosis. There is no intrahepatic biliary ductal dilatation. The main portal vein is patent. Gallbladder: There are foci of adenomyomatosis. No shadowing gallstones are identified. There is no gallbladder wall thickening or pericholecystic fluid. A sonographic Wang's sign is reportedly absent. The common bile duct measures up to 0.7 cm in diameter. Pancreas: Visualized portions of the pancreatic head and body are normal in appearance. The splenic vein is patent. Right kidney: Survey images of the right kidney demonstrate normal size and echotexture. There is no hydronephrosis. Ascites: None. IMPRESSION: 1. No acute sonographic abnormality is identified in the right upper quadrant. No gallstones are seen. 2. Foci of adenomyomatosis are seen in the gallbladder wall. 3. Hepatic echotexture is increased suggesting steatosis. ACT 112: Negative or not required by law. Electronically signed by: Jan Dubose M.D. 04/25/2025 2:06 PM Medications Administered Discontinued Medications Sodium Chloride (Nss) 1,000 mls @ 999 mls/hr IV .Q1H1M ONE Stop: 04/25/25 13:26 Last Admin: 04/25/25 12:38 Dose: 999 mls/hr Documented By: BLD Code Status & VTE Plan Code Status FULL CODE - As per direct discussion with the patient at bedside. Supervising Physician Co-Signing Physician Notes Patient is a 65-year-old female with history of hypothyroidism, was COPD, vocal cord cancer non-small cell lung cancer currently on chemotherapy, history of traumatic subarachnoid hemorrhage and other medical problems presents with history of dizziness, generalized weakness bilateral lower extremity pain. She states that dizziness mostly positional. Patient also states having some dysuria since last few days. She admits to having poor oral intake, loss of appetite. Please review HPI for complete details of presentation. I personally reviewed blood work and imaging studies. Creatinine noted to be 1.3, glucose 125, normal lactic acid levels. Noted mild transaminitis. Urinalysis concerning for possible UTI. Serology for tickborne illness pending. Lumbar x- ray she had bilateral pars defects at L5 with grade 1 anterolisthesis L5-S1, osteopenia and mild spondylotic changes. Gallbladder showed foci of adenomyomatosis of the gallbladder wall, findings suggestive of hepatic steatosis. Physical Exam: Vitals signs as noted above General Appearance:Overweight, no apparent distress Head: normocephalic, Atraumatic Eyes: normal inspection, EOMI Neck: supple, Trachea midline Respiratory/Chest: Normal breath sounds, CTA, No accessory muscle use Cardiovascular: S1, S2, No murmur Abdomen/GI:Soft, Non tender, Bowel sounds present Extremities/Musculoskeletal:normal inspection, no edema Neurologic/Psych:AAOX3, grossly no focal neurological deficits, +Hoarseness (Chronic) Skin: normal color, warm Urinary tract infection Dehydration/hypotension Mild transaminitis/hepatic steatosis Positional dizziness likely due to above Lumbar anterolisthesis with radiculopathy Acute kidney injury Lumbar CT, venous Doppler pending Empirically started on Rocephin Follow-up cultures Monitor LFTs, avoid hepato-, nephrotoxic agents IV fluids Check orthostatics PT OT as able Serology for tickborne illness pending I personally interviewed and examined the patient at bedside. I have reviewed the advanced practitioner's documentation on the date of service referred in note and agree with plan. Patient's care is coordinated with Emilia Lindsay PA-C. Please refer to the documentation above for details of patient's presentation and for discussion of other issues. I spent a total of 28 minutes coordinating, documenting, and providing care for this patient excluding time spent in the performance of separately billed services or time spent by another provider/QHP. (7) Urinary tract infection Hematuria presence: without hematuria Urinary tract infection type: site unspecified Qualified Code(s): N39.0 - Urinary tract infection, site not specified
[2025-04-25 14:42] LABS: Creatine Kinase 10.0 U/L (26-192)
--- NOTE | 2025-04-25 15:11 | Electrocardiogram Report ---
Test Reason : Blood Pressure : */* mmHG Vent. Rate : 94 BPM Atrial Rate : 94 BPM P-R Int : 156 ms QRS Dur : 74 ms QT Int : 338 ms P-R-T Axes : 49 27 61 degrees QTcB Int : 422 ms Normal sinus rhythm Low voltage QRS Nonspecific T wave abnormality Abnormal ECG No previous ECGs available Confirmed by Clayton Lopez ([id number]) on 04/25/2025 3:11:06 PM Referred By: REFERRED SELF Confirmed By: Clayton Lopez
[2025-04-25] MEDS: cefTRIAXone SODIUM 2,000 MG/50 ML BAG IV STA (15:21)
[2025-04-25] MEDS ORDERED: ACETAMINOPHEN 325 MG TAB PO PRN (17:15)
[2025-04-25] MEDS ORDERED: MAGNESIUM HYDROXIDE SUSP 30 ML UDC PO PRN (17:15)
[2025-04-25] MEDS ORDERED: ONDANSETRON INJ 2 MG/ML 2 ML VIAL IV PRN (17:15)
[2025-04-25] MEDS ORDERED: DOCUSATE SODIUM 100 MG CAP PO PRN (19:39)
[2025-04-25] MEDS: NSS + 20MEQ KCL 20 MEQ/1,000 ML BAG IV ONE (21:50)
[2025-04-25] MEDS: LORATADINE 10 MG TAB PO SCH (21:56)
[2025-04-25] MEDS: HEPARIN SOD 5,000 UNIT/0.5 ML VIAL SQ SCH (22:00)
[2025-04-25] MEDS: POLYETHYLENE (MIRALAX) 17 GM PACK PO PRN (22:00)
--- NOTE | 2025-04-25 22:14 | CT Scan Report ---
Exam(s): CT L SPINE EXAM: CT Lumbar Spine Without Intravenous Contrast CLINICAL HISTORY: Reason for exam: BLE pain, low back pain. TECHNIQUE: Axial computed tomography images of the lumbar spine without intravenous contrast. CTDI is 39.4 mGy and DLP is 1013.33 mGy-cm. Automated exposure control was utilized for the study. A dose lowering technique was utilized adhering to the principles of ALARA. COMPARISON: Prior plain film images of the lumbar spine from April 25, 2025. FINDINGS: Vertebrae: There is a chronic lytic spondylolisthesis at L5-S1. Diffuse osteopenia throughout the visualized bones. No acute fracture. Discs/spinal canal/neural foramina: There is severe bilateral L5-S1 neuroforaminal stenoses. No acute findings. No spinal canal stenosis. Soft tissues: Hepatic steatosis. IMPRESSION: No evidence of acute lumbar spine pathology. Chronic lytic spondylolisthesis at L5-S1 with severe bilateral neuroforaminal stenoses with impingement of the L5 nerve roots and ganglia. Electronically signed by: Lexus Cueto MD 04/25/25 22:13 PM
--- NOTE | 2025-04-25 23:04 | Ultrasound Report ---
Exam(s): US VENOUS RIGHT LOWER EXTREMITY EXAM: US Duplex Right Lower Extremity Veins CLINICAL HISTORY: R calf swelling, r/o DVT. TECHNIQUE: Real-time duplex ultrasound scan of the right lower extremity veins integrating B-mode two-dimensional vascular structure, Doppler spectral analysis, color flow Doppler imaging and compression. COMPARISON: No relevant prior studies available. FINDINGS: Deep veins: No DVT in the visualized common femoral, femoral, proximal deep femoral or popliteal veins. The veins demonstrate normal color flow, are normally compressible, with normal phasic flow and/or augmentation response. The interrogated calf veins are patent. Superficial veins: No thrombus in the saphenofemoral junction. Soft tissues: No acute findings. No popliteal cyst. IMPRESSION: No evidence for deep vein thrombosis involving the bilateral lower extremities. Electronically signed by: Ramiro Leiva MD 04/25/25 23:03 PM
[2025-04-26] MEDS: LEVOTHYROXINE SODIUM 75 MCG TABLET PO SCH (05:47)
[2025-04-26 07:20] LABS: Hematocrit (blood only) 35.1 % (37.0-47.0); Hemoglobin 12.2 g/dl (12.0-16.0); Immature Granulocytes # (auto) 0.25 K/uL (0.01-0.20); Immature Granulocytes % (auto) 4.8 %; Mean Corpuscular Hemoglobin 29.8 pg (25.0-34.0); Mean Corpuscular Volume 85.6 fL (80.0-100.0); Platelet Count 238 K/uL (130-400); RDW Standard Deviation 50.5 fL (36.4-46.3); Red Blood Count 4.10 M/uL (4.20-5.40); White Blood Count 5.25 K/ul (4.8-10.8)
[2025-04-26 07:42] LABS: Alanine Aminotransferase 52.0 U/L (7-52); Albumin Globulin Ratio 1.4 (0.9-2); Alkaline Phosphatase 152.0 U/L (34-104); Anion Gap 6.0 (3-11); Bilirubin,Total 0.8 mg/dl (0.2-1.0); Blood Urea Nitrogen 15.0 mg/dl (6-23); Calcium 8.3 mg/dl (8.6-10.3); Carbon Dioxide 20.0 mmol/L (21-32); Chloride 110.0 mmol/L (98-107); Creatinine Clr Calc Pharmacy 58.1 ml/min; Globulin 2.1 gm/dl (2.5-4.0); Glucose 109.0 mg/dl (70-99(Fasting)); Magnesium 1.5 mg/dl (1.7-2.4); Potassium 3.7 mmol/L (3.5-5.1); Sodium 136.0 mmol/L (136-145); Total Protein 5.0 gm/dl (6.0-8.3)
[2025-04-26 07:56] LABS: Thyroid Stimulating Hormone 6.685 uIu/ml (0.300-4.500)
[2025-04-26] MEDS ORDERED: NON-FORMULARY MEDICATION (Fluticasone-Umeclidin-Vilanter [Trelegy Ellipta] 100-62.5-25 mcg INH SCH (09:00)
[2025-04-26] MEDS: MONTELUKAST SODIUM 10 MG TABLET PO SCH (09:07)
[2025-04-26] MEDS: FAMOTIDINE 40 MG TABLET PO SCH (09:07)
[2025-04-26] MEDS: FLUTICASONE FUROATE 100MCG 14 PUFFS/INHALER INH SCH (09:07)
[2025-04-26] MEDS: UMECLIDINIUM/VILANTEROL 62.5/25MCG 7 PUFFS/INHALER INH SCH (09:08)
--- NOTE | 2025-04-26 12:33 | Hospitalist Progress Note ---
Date of Service April 26, 2025 Assessment & Plan (1) Bilateral lower extremity pain: (2) Generalized weakness: (3) Decrease in appetite: (4) Lightheadedness: (5) Acute kidney injury superimposed on stage 3a chronic kidney disease: (6) Transaminitis: (7) Urinary tract infection: Plan Patient is a 65-year-old female with past medical history significant for hypothyroidism, HLD, tobacco use disorder, COPD/centrilobular emphysema, history of vocal cord cancer s/p radiation therapy in 2016, non-small cell lung cancer diagnosed in 2020 s/p chemotherapy and radiation therapy [currently undergoing treatment with Keytruda [id number] + Krazati (oral chemo) therapy], CKD stage IIIa, severe DDD at L5-S1, history of traumatic subarachnoid hemorrhage in 2014 which resolved without surgery and other problems as below who presented to the ED with multiple complaints including BLE pain x several weeks, generalized weakness, poor oral intake with mild lightheadedness/dizziness and dysuria. Acute UTI Generalized weakness Patient reports passing cloudy urine and increased urgency Urinalysis suggestive of infection. Urine culture growing Streptococcus agalactiae group B Continue on current antibiotics; will follow-up on final culture and sensitivity Acute kidney injurycreatinine of 1.36 on admission; improved with IV hydration Transaminitisslight elevation in liver enzymes; gallbladder ultrasound did not show any gallstone; suggestive of steatosis. Continue monitor' Hypothyroidism- Continue levothyroxine COPD No s/sx of acute exacerbation Continue home inhaler, Singulair GERD Continue Pepcid History of vocal cord CA s/p radiation therapy --> chronic hoarse voice s/p ra diation DVT Prophylaxis: SQ heparin Disposition: Admit to med/tele Please note the above document was generated using voice recognition software. It may contain grammatical, syntax or spelling errors. Any formal questions or concerns about the content, text or information contained within the body of this dictation should be directly addressed to the provider for clarification Admission and Anticipated Discharge Date Admission Date: April 25, 2025 Subjective Patient reports that she is feeling much better. Reports feeling slightly dizzy while standing up. No significant events overnight Review of Systems Review of Systems: All systems reviewed & are unremarkable except as noted in Subjective Physical Exam Physical Exam: Constitutional: WD/WN, vitals as above, NAD, sitting up in bed, pleasant, conversing easily Respiratory: normal respiratory effort, lungs clear to auscultation, no wheeze, rales, rhonchi. Normal insp/exp effort, no accessory muscle use Cardiovascular: RRR, no murmur, no edema Vessels: no JVD or carotid bruit Chest: normal inspection of chest Abdomen: normal bowel sounds, soft, nontender, no hepatosplenomegaly Musculoskeletal: no cyanosis or clubbing, extremities motor strength 5/5 Skin: no rashes, warm and dry normal turgor Neurologic: PERRL, EOMI, accommodation nl, no face palsy, no dysarthria CN's II- XI intact bilaterally and moves all extremities Psychiatric: A+Ox3, euthymic affect Results & Data Results & Data Vital Signs (Past 12 Hours) Vital Signs Temp Pulse Resp BP BP Pulse Ox Pulse Ox 04/26/25 12:20 95 04/26/25 11:33 36.5 C 85 20 123/76 94 04/26/25 08:11 36.6 C 81 24 145/83 H 90 04/26/25 03:05 36.4 C L 93 H 16 135/84 93 O2 Del Method O2 Del Method 04/26/25 12:20 Room Air 04/26/25 11:33 Room Air 04/26/25 08:11 Room Air 04/26/25 03:05 Room Air (7) Urinary tract infection Hematuria presence: without hematuria Urinary tract infection type: site unspecified Qualified Code(s): N39.0 - Urinary tract infection, site not specified
[2025-04-26] MEDS: MAGNESIUM SULFATE / D5W 1 GM/100 ML BAG IV SCH (13:10)
[2025-04-26] MEDS: cefTRIAXone SODIUM 2,000 MG/50 ML BAG IV SCH (17:18)
[2025-04-27 06:32] LABS: Hematocrit (blood only) 33.4 % (37.0-47.0); Hemoglobin 11.8 g/dl (12.0-16.0); Mean Corpuscular Hemoglobin 30.1 pg (25.0-34.0); Mean Corpuscular Volume 85.2 fL (80.0-100.0); Platelet Count 242 K/uL (130-400); RDW Standard Deviation 49.8 fL (36.4-46.3); Red Blood Count 3.92 M/uL (4.20-5.40); White Blood Count 4.64 K/ul (4.8-10.8)
[2025-04-27 06:51] LABS: Immature Granulocytes # (auto) 0.24 K/uL (0.01-0.20); Immature Granulocytes % (auto) 5.2 %; Polychromasia 1+
[2025-04-27 07:00] LABS: Anion Gap 6.0 (3-11); Blood Urea Nitrogen 11.0 mg/dl (6-23); Calcium 8.9 mg/dl (8.6-10.3); Carbon Dioxide 23.0 mmol/L (21-32); Chloride 107.0 mmol/L (98-107); Creatinine Clr Calc Pharmacy 63.9 ml/min; Glucose 130.0 mg/dl (70-99(Fasting)); Potassium 4.1 mmol/L (3.5-5.1); Sodium 136.0 mmol/L (136-145)
[2025-04-27 07:47] VITALS: BP 166/96; PULSE 84; RESP 20; TEMP 97.7; O2SAT 92
--- NOTE | 2025-04-27 12:55 | Discharge Summary ---
Date of Service April 27, 2025 Admission HPI Per Admitting Provider Patient is a 65-year-old female with past medical history significant for hypothyroidism, HLD, tobacco use disorder, COPD/centrilobular emphysema, history of vocal cord cancer s/p radiation therapy in 2016, non-small cell lung cancer diagnosed in 2020 s/p chemotherapy and radiation therapy [currently undergoing treatment with Keytruda [id number] + Krazati (oral chemo) therapy], CKD stage IIIa, severe DDD at L5-S1, history of traumatic subarachnoid hemorrhage in 2014 which resolved without surgery and other problems as below who presented to the ED with multiple complaints including lightheadedness/dizziness, BLE pain and generalized weakness. History obtained from the patient, discussion with ED provider and associated chart review. Patient reports BLE pain upon standing, but not with ambulation, for the past few weeks. It occurs only when she is standing still or laying down in bed. She describes the pain as dull/achy in sensation with periods of sharp twinges. The pain occasionally will radiate into her lower back and one time it radiated all the way up into her shoulders. States she had some mild numbness in her arms a few days ago but this had subsided. Denies any BLE paresthesias. No reported bowel or urinary incontinence. No trauma or inciting event prior to beginning. Feels her RLE is somewhat more swollen when compared to the LLE. No TTP of her BLE or erythematous patches noted. No reported fevers. However, patient has been experiencing dysuria for the past several days. No reported hematuria, diarrhea or melena/hematochezia. Patient states that while she wants to do sleep and that she feels overall "rundown"/weak. With her fatigue she also notes poor oral intake due to lack of appetite. She endorses some mild lightheadedness and dizziness which she attribu eduard due to her poor fluid intake. No reported falls. Patient is currently being treated with Keytruda every 3 weeks and is on an oral chemotherapy medication called Krazati due to history of non-small cell lung cancer. She follows with an oncologist in [place], [place] named Dr. Tano Alves. She has not taken her oral chemotherapy medication for the past couple of days due to feeling so unwell. He r last Keytruda session was about 2 weeks ago. Has a chronic cough and SOB with exertion. Patient with history of vocal cord cancer s/p radiation therapy in 2017. Chronic hoarse voice. Patient denies any chest pain, SOB with rest or abdominal pain. Patient has not had a bowel movement in about 4 days. She notes this is somewhat usual for her as she occasionally takes Percocet for cancer-related pain and underlying severe L5-S1 DDD. She had been using the Percocet to try and alleviate the pain in her BLE and low back without full relief. Admission Exam Per Admitting Provider General Appearance:Overweight, no apparent distress Head: normocephalic, Atraumatic Eyes: normal inspection, EOMI Neck: supple, Trachea midline Respiratory/Chest: Normal breath sounds, CTA, No accessory muscle use Cardiovascular: S1, S2, No murmur Abdomen/GI:Soft, Non tender, Bowel sounds present Extremities/Musculoskeletal:normal inspection, no edema Neurologic/Psych:AAOX3, grossly no focal neurological deficits, +Hoarseness (Chronic) Skin: normal color, warm Principal Diagnosis Acute UTI Generalized weakness Discharge Exam Constitutional: WD/WN, vitals as above, NAD, sitting up in bed, pleasant, conversing easily Respiratory: normal respiratory effort, lungs clear to auscultation, no wheeze, rales, rhonchi. Normal insp/exp effort, no accessory muscle use Cardiovascular: RRR, no murmur, no edema Vessels: no JVD or carotid bruit Chest: normal inspection of chest Abdomen: normal bowel sounds, soft, nontender, no hepatosplenomegaly Musculoskeletal: no cyanosis or clubbing, extremities motor strength 5/5 Skin: no rashes, warm and dry normal turgor Neurologic: PERRL, EOMI, accommodation nl, no face palsy, no dysarthria CN's II- XI intact bilaterally and moves all extremities Psychiatric: A+Ox3, euthymic affect Discharge Data Allergies Allergy/AdvReac Type Severity Reaction Status Date / Time No Known Allergies Allergy Unverified 11/07/16 05:50 Consultations 04/25/25 14:58 ED Decision to Admit Stat Ordered Studies 04/25/25 13:00 US gallbladder Stat 04/25/25 19:37 US venous doppler LE RT Urgent 04/25/25 19:38 CT lumbar spine wo con Routine Hospital Course (1) Bilateral lower extremity pain: (2) Generalized weakness: (3) Decrease in appetite: (4) Lightheadedness: (5) Acute kidney injury superimposed on stage 3a chronic kidney disease: (6) Transaminitis: (7) Urinary tract infection: Plan Patient is a 65-year-old female with past medical history significant for hypothyroidism, HLD, tobacco use disorder, COPD/centrilobular emphysema, history of vocal cord cancer s/p radiation therapy in 2016, non-small cell lung cancer diagnosed in 2020 s/p chemotherapy and radiation therapy [currently undergoing treatment with Keytruda [id number] + Krazati (oral chemo) therapy], CKD stage IIIa, severe DDD at L5-S1, history of traumatic subarachnoid hemorrhage in 2014 which resolved without surgery and other problems as below who presented to the ED with multiple complaints including BLE pain x several weeks, generalized weakness, poor oral intake with mild lightheadedness/dizziness and dysuria. Acute UTI Generalized weakness Patient reports passing cloudy urine and increased urgency Urinalysis suggestive of infection. Urine culture growing Streptococcus agalactiae group B Patient was treated with antibiotic with improvement in her symptoms. She was placed on oral antibiotic at discharge. She reported that her weakness had improved and felt back to baseline at the time of the discharge. Acute kidney injurycreatinine of 1.36 on admission; improved with IV hydration Transaminitisslight elevation in liver enzymes; gallbladder ultrasound did not show any gallstone; suggestive of steatosis. Continue monitor' Hypothyroidism- Continue levothyroxine COPD No s/sx of acute exacerbation Continue home inhaler, Singulair GERD Continue Pepcid Please note the above document was generated using voice recognition software. It may contain grammatical, syntax or spelling errors. Any formal questions or concerns about the content, text or information contained within the body of this dictation should be directly addressed to the provider for clarification Total Time Total Time Spent Total Time Spent (In Minutes): 45 Total Time Includes: Examination of the Patient, Discharge Planning, Medication Reconciliation, Communication With Other Providers and Other Discharge Plan Discharge Items Patient Disposition: Home - Self-Care Reason For Visit: UTI, GENERALIZED WEAKNESS Discharge Diagnosis: Acute UTI Generalized weakness Condition on Discharge: Fair Activity: Resume your previous activity Non-emergency contact: Primary Care Provider Call non-emergency contact if: you have any medication questions and your symptoms worsen Follow-up/Referrals: Tim Galan PA-C [Primary Care Provider] - Diet: Regular Addtl Attending Provider Instructions: You were admitted to the hospital due to urinary tract infection and dehydration. You are treated with IV fluids during the hospitalization and antibiotics. You are prescribed amoxicillin 500 mg to be taken 3 times a day for 5 days to complete antibiotic course. Keep yourself hydrated. Pending Studies at Discharge: No Stand-Alone Forms: [facility], Smoking Cessation Medications and DC Order Prescriptions: New amoxicillin 500 mg capsule 500 mg PO TID 5 Days Qty: 15 0RF Continued levothyroxine 75 mcg Tablet 1 tab PO DAILYBB 30 Days Qty: 30 loratadine 10 mg Tablet 10 mg PO HS Qty: 0 Patient Comments: 04/25-OTC/ no fill history unable to verify famotidine 40 mg tablet 40 mg PO QAM montelukast 10 mg tablet 10 mg PO QAM Trelegy Ellipta 100-62.5-25 mcg blister with device 1 inh INHALATION QAM oxycodone-acetaminophen 5-325 mg tablet 1 tab PO Q4H PRN (Reason: Pain) albuterol 90 mcg/actuation Aerosol 90 mcg INHALATION Q4H PRN (Reason: SOB/Wheezing) adagrasib 200 mg Tablet 600 mg PO BID Keytruda 25 mg/mL Solution See Rx Instructions .ROUTE .COMPLEX Rx Instructions: Administer 2 mg/kg intravenously every [address] Alves for oncology. Discharge Orders: Discharge Order (Routine); Ordered 04/27/25 Ordered By: Brice Joseph Admission Data Admit Date/Time: 04/25/25 15:15 Attending Provider: Brice Joseph Admit Provider: Fam Cárdenas Primary Care Provider: Tim Galan Other Providers: Fam Cárdenas Other Interventions: Discharge Summary Assessment (RN) Last Done: 04/27/25 11:01
== END 2025-04-27 11:45 | disposition home or self-care (01) | DRG 690 ==
LOC: ED 11:52 → EDINP 15:15 → SUATTDRO 15:15 → 2N 18:27